=== PATIENT | female | born 1985 | race Caucasian/White ===

== ENCOUNTER 2017-07-19 14:03 | Outpatient (CLI) | payer OTHER ==
[2017-07-19 15:27] LABS: HEMATOCRIT 26.7 % (36.0-47.0); HEMOGLOBIN 8.1 g/dl (12.0-16.0); MEAN CORPUSCULAR HEMOGLOBIN 21.9 pg (27.0-33.0); MEAN CORPUSCULAR HGB CONC 30.3 g/dl (32.0-36.5); MEAN CORPUSCULAR VOLUME 72.2 fl (80.0-96.0); PLATELET COUNT, AUTOMATED 255 10^3/uL (150-450); RED CELL DISTRIBUTION WIDTH 16.4 % (11.5-14.5); WHITE BLOOD COUNT 11.8 10^3/uL (4.0-10.0)
[2017-07-19 15:43] LABS: AMPHETAMINES URINE REFLEX NEGATIVE (NEGATIVE); BARBITURATES URINE REFLEX NEGATIVE (NEGATIVE); BENZODIAZEPINES URINE REFLEX NEGATIVE (NEGATIVE); CANNABINOIDS URINE REFLEX NEGATIVE (NEGATIVE); COCAINE METABOLITE URINE REFLE NEGATIVE (NEGATIVE); METHADONE URINE REFLEX NEGATIVE (NEGATIVE); OPIATES URINE REFLEX NEGATIVE (NEGATIVE); PHENCYCLIDINE URINE REFLEX NEGATIVE (NEGATIVE)
[2017-07-19 16:03] LABS: HBSAG L&D NEGATIVE (NEGATIVE)
[2017-07-20 10:21] LABS: RUBELLA IgG QUALITATIVE IMMUNE (IMMUNE)
[2017-07-20 10:29] LABS: HIV 1&2 SCREEN CENTAUR NEGATIVE (NEGATIVE)
[2017-07-21 10:14] LABS: HERPES ZOSTER, VARICELLA IgG 660 index (Immune >165)
== END 2017-07-19 16:40 | disposition home or self-care (01) ==
LOC: M LDO 14:03
DX: O47.1 False labor at or after 37 completed weeks of gestation (principal); Z91.040 Latex allergy status; Z86.14 Personal history of Methicillin resistant Staphylococcus aureus infection; Z86.19 Personal history of other infectious and parasitic diseases; Z86.59 Personal history of other mental and behavioral disorders; Z3A.40 40 weeks gestation of pregnancy
CPT/HCPCS: 76820

== ENCOUNTER 2017-07-22 10:12 | Inpatient (IN) | payer OTHER ==
[2017-07-22] MEDS: OXYTOCIN DRIP 30 UNITS in APPROPRIATE DILUENT 1 EA IV ×3 (11:20→16:55)
[2017-07-22] MEDS: LACTATED RINGER'S 1000 ML IV (11:20)
[2017-07-22 11:29] LABS: HEMATOCRIT 29.4 % (36.0-47.0); HEMOGLOBIN 8.6 g/dl (12.0-16.0); MEAN CORPUSCULAR HEMOGLOBIN 21.3 pg (27.0-33.0); MEAN CORPUSCULAR HGB CONC 29.3 g/dl (32.0-36.5); MEAN CORPUSCULAR VOLUME 72.8 fl (80.0-96.0); PLATELET COUNT, AUTOMATED 282 10^3/uL (150-450); RED BLOOD COUNT 4.04 10^6/uL (4.00-5.40); RED CELL DISTRIBUTION WIDTH 16.8 % (11.5-14.5); WHITE BLOOD COUNT 11.8 10^3/uL (4.0-10.0)
[2017-07-22] MEDS: LR 1,000 ML IV (12:25)
[2017-07-22] MEDS ORDERED: FENTANYL 2MCG/ML ROPIVACAINE 0.2% IN 0.9% NACL 200ML IVBAG As Ordered (13:19)
[2017-07-22 13:23] LABS: BEDSIDE GLUCOSE 71 MG/DL (70-105)
[2017-07-22] MEDS ORDERED: NALOXONE INJ 0.4 MG/1 ML VIAL (J2310) IV (15:15)
[2017-07-22] MEDS ORDERED: EPIDURAL COMMENT XX (15:15)
[2017-07-22] MEDS ORDERED: REFRIGERATOR IV KEYS XX (15:15)
[2017-07-22] MEDS ORDERED: diphenhydrAMINE INJ 50MG/ML VIAL (J1200) IV (15:15)
[2017-07-22] MEDS ORDERED: EPIDURAL/PCA KEYS XX (15:15)
[2017-07-22] MEDS ORDERED: FENTANYL/ROPIVACAINE/NACL BAG 200 ML EPIDURAL (15:15)
[2017-07-22] MEDS ORDERED: ONDANSETRON 4MG/2ML VIAL (J2405) IV (15:15)
[2017-07-22] MEDS ORDERED: LACTATED RINGER'S 1000 ML IV (15:15)
[2017-07-22] MEDS ORDERED: ePHEDrine SULFATE 25 MG/5 ML(5MG/ML) SYRINGE IV (15:15)
[2017-07-22] MEDS ORDERED: OXYTOCIN 30 UNITS IN 0.9% NaCl 500ML IV BAG (J2590) As Ordered (15:49)
[2017-07-22] MEDS ORDERED: ACETAMINOPHEN TAB 650MG DOSE (2X325MG) PO (16:00)
[2017-07-22] MEDS: MEASLES,MUMPS,RUBELLA VACCINE INJ (MMR-II) (90707) SC (18:12)
[2017-07-22] MEDS: RHOGAM 300 MCG (1500 IU) INJ (J2790) IM (18:13)
[2017-07-22] MEDS: DOCUSATE SODIUM 100 MG CAP PO (20:03)
[2017-07-22] MEDS: IBUPROFEN 800 MG TAB PO (21:25)
[2017-07-23] MEDS: IBUPROFEN 800 MG TAB PO (05:43)
[2017-07-23] MEDS: DOCUSATE SODIUM 100 MG CAP PO ×2 (10:13→20:26)
[2017-07-23] MEDS: PRENATAL VITAMINS CHEWABLE TABLET PO (10:14)
[2017-07-24] MEDS: DOCUSATE SODIUM 100 MG CAP PO (07:37)
[2017-07-24] MEDS: PRENATAL VITAMINS CHEWABLE TABLET PO (07:38)
[2017-07-24] MEDS: IBUPROFEN 800 MG TAB PO (07:39)
== END 2017-07-24 15:28 | disposition home or self-care (01) | DRG 775 ==
LOC: M LDI 10:12 → M OBS 17:56
PROVIDERS: Midwife
PROC: 10E0XZZ Delivery of Products of Conception, External Approach (ICD-10-PCS; principal; 2017-07-22)
PROC: 3E033VJ Introduction of Other Hormone into Peripheral Vein, Percutaneous Approach (ICD-10-PCS; 2017-07-22)
DX: O48.0 Post-term pregnancy (principal); Z37.0 Single live birth; Z3A.41 41 weeks gestation of pregnancy; Z91.040 Latex allergy status

== ENCOUNTER 2018-10-31 08:55 | Day surgery (SDC) | payer OTHER ==
[~2018-10-31] VITALS: Ht 162.6 cm; Wt 61.2 kg
[~2018-10-31 08:55] MED LIST: ACETAMINOPHEN 650 MG SUPP PR ONE; FLINCHW5 PO; IBUP-1114 PO; LR 1,000 ML IV ONE; MAPA500T2 PO
[2018-10-31 09:59] LABS: HEMATOCRIT 28.3 % (36.0-47.0); HEMOGLOBIN 8.2 g/dl (12.0-15.5); MEAN CORPUSCULAR HEMOGLOBIN 20.6 pg (27.0-33.0); MEAN CORPUSCULAR VOLUME 71.1 fl (80.0-96.0); PLATELET COUNT, AUTOMATED 305 10^3/uL (150-450); RED BLOOD COUNT 3.98 10^6/uL (4.00-5.40); WHITE BLOOD COUNT 5.6 10^3/uL (4.0-10.0)
[2018-10-31] MEDS ORDERED: LIDOCAINE 2% INJ 100 MG/5 ML SDV (FOR ANES.) As Ordered ONE (10:07)
[2018-10-31] MEDS ORDERED: PROPOFOL 200 MG/20 ML VIAL As Ordered ONE ×2 (10:07→10:36)
[2018-10-31] MEDS ORDERED: fentaNYL 100 MCG/2 ML INJECTION (J3010) As Ordered ONE (10:08)
[2018-10-31] MEDS ORDERED: MIDAZOLAM INJ 2 MG/2 ML VIAL (J2250) As Ordered ONE (10:08)
[2018-10-31] MEDS ORDERED: ACETAMINOPHEN 650 MG SUPP As Ordered ONE (10:25)
[2018-10-31 10:32] LABS: BLOOD UREA NITROGEN 10 MG/DL (7-18); CALCIUM LEVEL 8.4 MG/DL (8.5-10.1); CARBON DIOXIDE LEVEL 28 MEQ/L (21-32); CHLORIDE LEVEL 107 MEQ/L (98-107); GLOMERULAR FILTRATION RATE > 60.0 (>60); GLUCOSE, FASTING 93 MG/DL (70-100); HCG, SERUM QUANTITATIVE < 1.0 MIU/ML; SODIUM LEVEL 140 MEQ/L (136-145)
[2018-10-31] MEDS ORDERED: dexameTHASONE 4 MG/ML 1ML VIAL (J1100) As Ordered ONE (10:41)
[2018-10-31] MEDS ORDERED: ONDANSETRON 4MG/2ML VIAL (J2405) As Ordered ONE (10:41)
[2018-10-31] MEDS ORDERED: KETOROLAC 60 MG/2 ML VIAL (J1885) As Ordered ONE (10:41)
[2018-10-31 12:20] VITALS: BP 114/56
--- NOTE | 2018-11-01 07:07 | RO ---
DATE OF PROCEDURE: 10/31/2018. PREOPERATIVE DIAGNOSIS: Retained products of conception June 2018. POSTOPERATIVE DIAGNOSIS: Retained products of conception June 2018 and anemia. OPERATION PROPOSED: Hysteroscopy D C suction curettage. OPERATION PERFORMED: Hysteroscopy D C suction curettage. ANESTHESIA: Local plus MAC ESTIMATED BLOOD LOSS: 20 mL SURGEON: Dr. Ceron. After adequate time-out, prepped and draped in lithotomy position, bladder was drained for approximately 350 mL of clear urine. Weighted speculum vagina. Single-tooth tenaculum placed on a large multiparous Uterus, cervix which had a large fishmouth effect secondary to a previous cone biopsy. The uterus was sounded to 7.5 cm did not require much dilatation got up to a Long 8. Hysteroscope was introduced. Panoramic review the os on the left was normal. The os on the right was normal of 30 degrees scope was used and in the right fundal area just before the os there is a dark and black spot which appeared to be calcified or possibly related to retained placenta products. Once the area was localized suction curette was applied, the piece was extracted and removed from that area sent off to pathology under separate cover. The uterus replaced in anatomical position, acetaminophen suppository 1300 mg per rectum. patient is Rh positive does not require RhoGAM and the patient was then sent to recovery in good condition.
== END 2018-10-31 12:27 | disposition home or self-care (01) ==
LOC: M SDC 08:55
PROVIDERS: ATTEND Obstetrics & Gynecology
DX: O02.1 Missed abortion (principal)
CPT/HCPCS: 36415; 59820; 80048; 84702; 85027; 86850; 86900; 86901; 88305; J0690; J1100; J1885; J2250; J2405; J3010

== ENCOUNTER → 2018-11-15 | Outpatient (CLI) | payer OTHER ==
[~2018-11-15] MED LIST changes: -ACETAMINOPHEN 650 MG SUPP PR ONE; -LR 1,000 ML IV ONE
--- NOTE | 2018-11-15 10:46 | REP ---
Chest single PA view: There are no comparisons. The lung duffy are clear. Cardiac size is normal. The thalia, mediastinum, skeletal structures are unremarkable. Impression: Negative single PA view of the chest. Electronically Signed by Everett Jones MD 11/15/2018 10:38 A
--- NOTE | 2018-11-15 10:47 | REP ---
Sternal for views: There are no comparisons. No sternal fracture is identified. The sternomanubrial joint is unremarkable. The sternum is otherwise unremarkable. Impression: Negative plain film study of the sternum. Depending on symptomatology consider CT follow-up with sagittal and coronal reconstructions. Electronically Signed by Everett Jones MD 11/15/2018 10:39 A
== END ==
LOC: M LRY 10:01
PROVIDERS: ATTEND Physician Assistant Medical
DX: S29.9XXA Unspecified injury of thorax, initial encounter (principal); X58.XXXA Exposure to other specified factors, initial encounter; Y92.89 Other specified places as the place of occurrence of the external cause
CPT/HCPCS: 71045; 71120; G0463

== ENCOUNTER 2019-01-22 14:50 | Emergency (ER) | payer OTHER ==
[~2019-01-22] VITALS: Ht 162.6 cm; Wt 60.0 kg
[2019-01-22 14:51] VITALS: BP 120/76
== END 2019-01-22 16:51 | disposition left against medical advice (07) ==
LOC: M ED 14:50
DX: Z53.21 Procedure and treatment not carried out due to patient leaving prior to being seen by health care provider (principal)